=== PATIENT | female | born 1975 | race Caucasian/White ===

== ENCOUNTER 2017-12-17 19:47 | Emergency (ER) | payer MEDICARE ==
[~2017-12-17] VITALS: Ht 162.6 cm; Wt 57.2 kg
[2017-12-17 20:00] VITALS: BP_SYST 162
[2017-12-17 21:37] VITALS: BP_SYST 156
[2017-12-18] MEDS ORDERED: MIDAZOLAM HCL 2 MG/2 ML VIAL (VERSED) ONE (09:24)
[2017-12-18] MEDS ORDERED: MEPERIDINE HCL/PF 50 MG/ML AMP ONE (09:25)
== END 2017-12-17 21:37 | disposition home or self-care (01) ==
LOC: SED 19:47
DX: H10.213 Acute toxic conjunctivitis, bilateral (principal); R03.0 Elevated blood-pressure reading, without diagnosis of hypertension; F41.9 Anxiety disorder, unspecified; Z88.0 Allergy status to penicillin; Z88.2 Allergy status to sulfonamides; Z88.5 Allergy status to narcotic agent
CPT/HCPCS: 99283; J2175; J3465

== ENCOUNTER 2018-11-11 19:11 | Emergency (ER) | payer BC, MEDICARE ==
[~2018-11-11] VITALS: Ht 160 cm; Wt 59.0 kg
[2018-11-11 19:20] VITALS: BP_SYST 168
[2018-11-11] MEDS ORDERED: IBUPROFEN 600 MG TABLET PO ONE (20:30)
[2018-11-11 20:56] VITALS: BP_SYST 168
== END 2018-11-11 20:19 | disposition home or self-care (01) ==
LOC: SED 19:11
DX: S16.1XXA Strain of muscle, fascia and tendon at neck level, initial encounter (principal); Z88.0 Allergy status to penicillin; Z88.1 Allergy status to other antibiotic agents; Z88.2 Allergy status to sulfonamides; Z88.8 Allergy status to other drugs, medicaments and biological substances; X50.0XXA Overexertion from strenuous movement or load, initial encounter; Y93.89 Activity, other specified; Y92.89 Other specified places as the place of occurrence of the external cause; Y99.8 Other external cause status
CPT/HCPCS: 81025; 99283